=== PATIENT | male | born 1985 | race Caucasian/White ===

== ENCOUNTER 2018-05-27 17:22 | Emergency (ER) | payer BC ==
[~2018-05-27 17:22] MED LIST: CEP500 PO; HYDR-3078 PO; IBU800 PO; IBUP-1618 PO; LOR5 PO; NO RTN MEDS; OMEP-218 PO; ONDA4TAB PO; OXYC-856 PO; PER PO
[2018-05-27] MEDS ORDERED: NS(*) 0.9% 1000 ML BAG 1,000 ML IV ONE (18:01)
--- NOTE | 2018-05-27 18:02 | ER Report ---
History and Physical Time Seen By MD: 18:01 HPI/YAMILET CHIEF COMPLAINT: Alcohol dependency, suicidal ideation, depression HISTORY OF PRESENT ILLNESS: 32-year-old male with a history of 10 years of drinking presents with his mother concerned over suicidal ideation with depression. He is drinking approximately a 5th per day of hard alcohol. 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 He expresses suicidal ideation. He has multiple plans. He's considering hanging himself with a rope. Patient seems very actively suicidal at this time. REVIEW OF SYSTEMS: Respiratory: No cough, no dyspnea. Cardiovascular: No chest pain, no palpitations. Gastrointestinal: No vomiting, no abdominal pain. Musculoskeletal: No back pain. Allergies: Coded Allergies: No Known Allergies (Unverified Allergy, Mild, 02/17/12) Home Meds Active Scripts Oxycodone Hcl/Acetaminophen (ENDOCET 7.5-325 MG TABLET) 1 Each Tablet, 1-2 EACH PO Q6-8H, #40 Prov:MADELEINE DALTON DO 03/31/13 Reported Medications Oxycodone Hcl/Acetaminophen (ENDOCET 7.5-325 MG TABLET) 1 Each Tablet, 1 EACH PO 03/31/13 [No Rtn Meds ] No Conflict Check 03/31/13 Reviewed Nurses Notes: Yes Old Medical Records Reviewed: Yes Hx Smoking: Yes Smoking Status: Current: Some Days Smoker Hx Substance Use Disorder: Yes Hx Alcohol Use: Yes Constitutional Vital Sign - Last 24 Hours 05/27/18 05/27/18 05/27/18 05/27/18 17:53 17:55 18:00 18:10 Temp 98.0 Pulse 96 ??? 93 Resp 18 B/P (MAP) 138/102 138/102 (114) Pulse Ox 95 96 05/27/18 05/27/18 05/27/18 05/27/18 18:15 18:25 18:30 18:40 Pulse 89 92 B/P (MAP) 133/101 (112) 139/95 (110) Pulse Ox 96 98 05/27/18 05/27/18 05/27/18 05/27/18 18:45 18:55 19:10 19:15 Pulse 91 87 B/P (MAP) 137/102 (114) 112/74 (87) Pulse Ox 96 96 05/27/18 05/27/18 05/27/18 05/27/18 19:25 19:30 19:40 19:45 Pulse 91 88 B/P (MAP) 130/93 (105) 140/94 (109) Pulse Ox 95 95 05/27/18 05/27/18 05/27/18 19:50 20:00 20:05 Pulse 83 ??? B/P (MAP) 116/71 (86) Pulse Ox 94 Intake and Output 05/27/18 05/27/18 05/28/18 15:00 23:00 07:00 Intake Total 1000 ml Balance 1000 ml Physical Exam General Appearance: The patient is alert, has no immediate need for airway protection and no current signs of toxicity. Mildly agitated, restless, tearful, withdrawn., expresses suicidal ideation HEENT: Pupils equal and round no injection. TMs normal, oropharynx without redness or exudate, mucous. Membranes are moist Respiratory: Chest is non tender, lungs are clear to auscultation. Cardiac: regular rate and rhythm Gastrointestinal: Abdomen is soft and non tender, no masses, bowel sounds normal. Musculoskeletal: Neck: Neck is supple and non tender. Extremities have full range of motion and are non tender. Skin: No rashes or lesions. DIFFERENTIAL DIAGNOSIS: After history and physical exam differential diagnosis was considered for depression including functional and major depression, situational depression, medication side effect, drugs and alcohol abuse. Medical Decision Making Data Points Result Diagram: 05/27/18 18005/27/18 180 Laboratory Hematology Test 05/27/18 18:06 05/27/18 18:59 Red Blood Count 5.01 M/uL (4.00-5.60) Mean Corpuscular Volume 100.1 fL (80.0-96.0) Mean Corpuscular Hemoglobin 34.4 pg (26.0-33.0) Mean Corpuscular Hemoglobin Concent 34.4 g/dL (32.0-36.0) Red Cell Distribution Width 13.0 % (11.5-14.5) Mean Platelet Volume 8.0 fL (7.2-11.1) Neutrophils (%) (Auto) 55.6 % (39.4-72.5) Lymphocytes (%) (Auto) 32.6 % (17.6-49.6) Monocytes (%) (Auto) 9.6 % (4.1-12.4) Eosinophils (%) (Auto) 1.5 % (0.4-6.7) Basophils (%) (Auto) 0.7 % (0.3-1.4) Nucleated RBC Relative Count (auto) 0.0 /100WBC Neutrophils # (Auto) 2.9 K/uL (2.0-7.4) Lymphocytes # (Auto) 1.7 K/uL (1.3-3.6) Monocytes # (Auto) 0.5 K/uL (0.3-1.0) Eosinophils # (Auto) 0.1 K/uL (0.0-0.5) Basophils # (Auto) 0.0 K/uL (0.0-0.1) Nucleated RBC Absolute Count (auto) 0.00 K/uL Sodium Level 145 mmol/L (137-145) Potassium Level 3.1 mmol/L (3.5-5.0) Chloride Level 107 mmol/L (98-107) Carbon Dioxide Level 25 mmol/L (22-30) Blood Urea Nitrogen 9 mg/dl (9-21) Creatinine 0.80 mg/dl (0.66-1.25) Glomerular Filtration Rate Calc > 60.0 Random Glucose 133 mg/dl (75-110) Calcium Level 9.3 mg/dl (8.4-10.2) Magnesium Level 2.3 mg/dl (1.7-2.2) Total Bilirubin 0.5 mg/dl (0.2-1.3) Aspartate Amino Transf (AST/SGOT) 40 U/L (0-35) Alanine Aminotransferase (ALT/SGPT) 32 U/L (0-56) Alkaline Phosphatase 60 U/L (0-126) Total Protein 7.8 g/dl (6.3-8.2) Albumin 4.7 g/dl (3.5-5.0) Salicylates Level < 10 mg/L Salicylate Last Dose Date Unk Acetaminophen Level < 10 ug/ml Serum Alcohol 234 mg/dl Urine Color Yellow Urine Clarity Clear Urine pH 7.0 pH (4.8-9.5) Urine Specific [place] 1.005 Urine Protein Negative mg/dL (NEGATIVE) Urine Glucose (UA) Negative mg/dL (NEGATIVE) Urine Ketones Negative mg/dL (NEGATIVE) Urine Blood Negative (NEGATIVE) Urine Nitrite Negative (NEGATIVE) Urine Bilirubin Negative (NEGATIVE) Urine Urobilinogen Negative mg/dL (0.2-1.9) Urine Leukocyte Esterase Negative (NEGATIVE) Urine RBC None /HPF (0-2/HPF) Urine WBC <1 /HPF (0-5/HPF) Urine Squamous Epithelial Cells None /LPF (</=FEW) Urine Bacteria Negative /HPF (NONE-FEW) Urine Mucus None /HPF (NONE-FEW) Urine Opiates Screen Negative Urine Barbiturates Screen Negative Ur Tricyclic Antidepressants Screen Negative Urine Phencyclidine Screen Negative Urine Amphetamines Screen Negative Urine Benzodiazepines Screen Negative Urine Cocaine Screen Negative Urine Cannabinoids Screen Negative Chemistry Test 05/27/18 18:06 05/27/18 18:59 White Blood Count 5.3 k/uL (4.5-11.0) Red Blood Count 5.01 M/uL (4.00-5.60) Hemoglobin 17.2 g/dL (14.0-18.0) Hematocrit 50.2 % (42.0-52.0) Mean Corpuscular Volume 100.1 fL (80.0-96.0) Mean Corpuscular Hemoglobin 34.4 pg (26.0-33.0) Mean Corpuscular Hemoglobin Concent 34.4 g/dL (32.0-36.0) Red Cell Distribution Width 13.0 % (11.5-14.5) Platelet Count 259 K/uL (150-450) Mean Platelet Volume 8.0 fL (7.2-11.1) Neutrophils (%) (Auto) 55.6 % (39.4-72.5) Lymphocytes (%) (Auto) 32.6 % (17.6-49.6) Monocytes (%) (Auto) 9.6 % (4.1-12.4) Eosinophils (%) (Auto) 1.5 % (0.4-6.7) Basophils (%) (Auto) 0.7 % (0.3-1.4) Nucleated RBC Relative Count (auto) 0.0 /100WBC Neutrophils # (Auto) 2.9 K/uL (2.0-7.4) Lymphocytes # (Auto) 1.7 K/uL (1.3-3.6) Monocytes # (Auto) 0.5 K/uL (0.3-1.0) Eosinophils # (Auto) 0.1 K/uL (0.0-0.5) Basophils # (Auto) 0.0 K/uL (0.0-0.1) Nucleated RBC Absolute Count (auto) 0.00 K/uL Glomerular Filtration Rate Calc > 60.0 Calcium Level 9.3 mg/dl (8.4-10.2) Magnesium Level 2.3 mg/dl (1.7-2.2) Total Bilirubin 0.5 mg/dl (0.2-1.3) Aspartate Amino Transf (AST/SGOT) 40 U/L (0-35) Alanine Aminotransferase (ALT/SGPT) 32 U/L (0-56) Alkaline Phosphatase 60 U/L (0-126) Total Protein 7.8 g/dl (6.3-8.2) Albumin 4.7 g/dl (3.5-5.0) Salicylates Level < 10 mg/L Salicylate Last Dose Date Unk Acetaminophen Level < 10 ug/ml Serum Alcohol 234 mg/dl Urine Color Yellow Urine Clarity Clear Urine pH 7.0 pH (4.8-9.5) Urine Specific [place] 1.005 Urine Protein Negative mg/dL (NEGATIVE) Urine Glucose (UA) Negative mg/dL (NEGATIVE) Urine Ketones Negative mg/dL (NEGATIVE) Urine Blood Negative (NEGATIVE) Urine Nitrite Negative (NEGATIVE) Urine Bilirubin Negative (NEGATIVE) Urine Urobilinogen Negative mg/dL (0.2-1.9) Urine Leukocyte Esterase Negative (NEGATIVE) Urine RBC None /HPF (0-2/HPF) Urine WBC <1 /HPF (0-5/HPF) Urine Squamous Epithelial Cells None /LPF (</=FEW) Urine Bacteria Negative /HPF (NONE-FEW) Urine Mucus None /HPF (NONE-FEW) Urine Opiates Screen Negative Urine Barbiturates Screen Negative Ur Tricyclic Antidepressants Screen Negative Urine Phencyclidine Screen Negative Urine Amphetamines Screen Negative Urine Benzodiazepines Screen Negative Urine Cocaine Screen Negative Urine Cannabinoids Screen Negative Toxicology Test 05/27/18 18:06 05/27/18 18:59 Salicylates Level < 10 mg/L Salicylate Last Dose Date Unk Acetaminophen Level < 10 ug/ml Serum Alcohol 234 mg/dl Urine Opiates Screen Negative Urine Barbiturates Screen Negative Ur Tricyclic Antidepressants Screen Negative Urine Phencyclidine Screen Negative Urine Amphetamines Screen Negative Urine Benzodiazepines Screen Negative Urine Cocaine Screen Negative Urine Cannabinoids Screen Negative Urinalysis Test 05/27/18 18:59 Urine Color Yellow Urine Clarity Clear Urine pH 7.0 pH (4.8-9.5) Urine Specific [place] 1.005 Urine Protein Negative mg/dL (NEGATIVE) Urine Glucose (UA) Negative mg/dL (NEGATIVE) Urine Ketones Negative mg/dL (NEGATIVE) Urine Blood Negative (NEGATIVE) Urine Nitrite Negative (NEGATIVE) Urine Bilirubin Negative (NEGATIVE) Urine Urobilinogen Negative mg/dL (0.2-1.9) Urine Leukocyte Esterase Negative (NEGATIVE) Urine RBC None /HPF (0-2/HPF) Urine WBC <1 /HPF (0-5/HPF) Urine Squamous Epithelial Cells None /LPF (</=FEW) Urine Bacteria Negative /HPF (NONE-FEW) Urine Mucus None /HPF (NONE-FEW) ED Course/Re-evaluation Clinical Indication for ER IV: Hydration, IV Access ED Course Patient was admitted to an examination room. H&P was done. The differential diagnoses was considered. On clinical examination, patient appears alcohol intoxicated. He is cooperative and pleasant. He is somewhat agitated and restless. He expresses suicidal ideation. He has plans to hang himself. After prolonged medical evaluation. Patient was detained for admission to behavioral health. I think is a significant suicidal risk. Patient's blood alcohol returned at 231. 05/27/2018 7:36:38 pm shamika with Gina Camacho nurse practitioner a behavioral health service who accepts the patient for admission. Decision to Disposition Date: May 27, 2018 Decision to Disposition Time: 19:36 Depart Departure Latest Vital Signs Vital Signs Date Time Temp Pulse Resp B/P (MAP) Pulse Ox O2 Delivery O2 Flow Rate FiO2 05/27/18 20:05 ??? 05/27/18 20:00 116/71 (86) 05/27/18 19:50 94 05/27/18 17:53 98.0 18 Impression: Primary Impression: Alcohol dependence Additional Impression: Depression with suicidal ideation Condition: Improved Disposition: XFER TO [facility] Referrals: SAUD NARVAEZ MD (PCP) Problem Qualifiers Primary Impression: Alcohol dependence Substance use status: uncomplicated Qualified Codes: F10.20 - Alcohol dependence, uncomplicated VANDANAMAGDALENO May 27, 2018 18:02
[2018-05-27] MEDS ORDERED: THIAMINE HCL(*) 200 MG/2 ML IN 100 MG, FOLIC ACID(*) 50 MG/10 ML INJ 1 MG, MULTIVITAMIN... IV ONE (18:07)
[2018-05-27] MEDS ORDERED: OLANZapine ZYDIS ODT 5MG TABDP PO ONE (18:15)
[2018-05-27 18:32] LABS: PLATELET COUNT, AUTOMATED 259 K/uL (150-450)
[2018-05-27] MEDS ORDERED: diphenhydrAMINE 50 MG/ML VIAL IVP ONE (18:35)
[2018-05-27] MEDS ORDERED: DIAZEPAM 10 MG TAB PO ONE (19:00)
[2018-05-27 20:00] VITALS: BP 116/71
== END 2018-05-27 20:15 ==
LOC: ER 18:09
DX: F32.9 Major depressive disorder, single episode, unspecified (principal); R45.851 Suicidal ideations; F10.229 Alcohol dependence with intoxication, unspecified; Y90.7 Blood alcohol level of 200-239 mg/100 ml
CPT/HCPCS: 80305; 80320; 80329; 81001; 83735; 84443; 85025; 96365; 96375; 99284; J1200; J3411; J3475; J7030; 82040; 82247; 82310; 82374; 82435; 82565; 82947; 84075; 84132; 84155; 84295; 84450; 84460; 84520

== ENCOUNTER 2018-05-27 19:59 | Inpatient (IN) | payer BC ==
[~2018-05-27] VITALS: Ht 185.4 cm; Wt 70.3 kg
[2018-05-27 21:07] VITALS: BP 115/82
[2018-05-27] MEDS ORDERED: MAG HYD/AL HYD/SIMETH 30ML UDC PO PRN (21:30)
[2018-05-27] MEDS ORDERED: DIAZEPAM 10 MG TAB PO PRN ×2 (21:30→21:35)
[2018-05-28 06:08] LABS: PLATELET COUNT, AUTOMATED 211 K/uL (150-450)
[2018-05-28 06:23] VITALS: BP 117/82
[2018-05-28] MEDS: THIAMINE HCL 100 MG TAB PO SCH (08:11)
[2018-05-28] MEDS: FOLIC ACID 1 MG TAB PO SCH (08:11)
[2018-05-28] MEDS: MULTIVITAMINS PO SCH (08:11)
[2018-05-28] MEDS ORDERED: NICOTINE CARTRIDGE 1 EA PO PRN (08:15)
[2018-05-28 08:48] VITALS: BP 134/86
[2018-05-28] MEDS: NICOTINE INH SYSTEM 10 MG/INH INH PRN ×3 (09:05→19:41)
[2018-05-28 11:48] VITALS: BP 120/84
[2018-05-28 17:16] VITALS: BP 120/80
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
[2018-05-28 21:40] VITALS: BP 118/97
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
[2018-05-29 06:05] VITALS: BP 112/82
[2018-05-29] MEDS: MULTIVITAMINS PO SCH (08:17)
[2018-05-29] MEDS: FOLIC ACID 1 MG TAB PO SCH (08:17)
[2018-05-29] MEDS: THIAMINE HCL 100 MG TAB PO SCH (08:17)
[2018-05-29 10:15] VITALS: BP 122/82
--- NOTE | 2018-05-29 10:50 | BHS Progress Note ---
BHS - Subjective Progress Notes Subjective Pt seen in conference room with team. Pt reports better mood today. No SI since the evening of admission. We mostly discussed strategies for sobriety. He is familiar with AA because his brother (currently sober) attends AA. Will give him information on AA today, and see if he would like to have some AA memb ers come meet with him here. Told pt that we recommend IOP, and discussed what that looks like-- he works 4 nights per week beginning at 8 pm, so he thinks that would fit in to his schedule. He is more hopeful and future-oriented today. Had a good talk with his girlfriend last night. Discussed medications for him-- he has long hx of depression, ALONG WITH long hx of drinking. So unclear if there is underlying depressive disorder or if this is more substance- induced. But in any case we did recommend wellbutrin and discussed how it will help with depressive sx's as well as possibly with cravings. Pt is still on Title 25 hold, but given that he is cooperative, motivated, wants help... we did offer him to sign in voluntarily and he did do so. Will schedule treatment team for tomorrow with his mother and his girlfriend. Working towards tentative discharge for if pt continues to improve and stays free of SI. Suicidal Ideation: None Homicidal Ideation: None BHS - Objective Physical Exam Vital Signs Vital Signs 05/29/18 06:05 Temp 98.4 Pulse 78 Resp 15 B/P (MAP) 112/82 (92) Pulse Ox 96 O2 Delivery Room Air Muscle Strength and Tone: WNL Gait and Station: Steady BHS Medications Reviewed: Side Effects, Benefits of Medication, Risks Allergies Reviewed: Yes Mental Status Exam General Appearance: Casual, Well Groomed, Good Eye Contact, Cooperative, Polite, Good Interaction Speech: Clear, Spontaneous, Normal Rate, Normal Rhythm Mood: Dysthmic/Depressed Affect: Calm, Sad, Neutral Thought Process: Organized, Logical, Goal Directed Thought Content: Suicidal Ideation (resolving); No Homicidal Ideation, No Delusions, No Auditory Halllucinations, No Visual Hallucinations, No Thought Broadcasting, No Ideas of Reference, No Obsessions, No Compulsions, No Other Sensorium: Clear Cognition: Alert & Oriented-Person, Alert & Oriented-Place, Alert & Oriented- Time, Foowt-Azevlddg-Oifggkaux Memory: Immediate, Recent, Remote Intelligence: Average Insight Judgment: Fair Result Diagram: 05/28/18 0559 05/28/1859 [facility] Assessment and Plan [id number] Encounter Date: May 29, 2018 [id number] Encounter Time: 10:00 [facility] Plan: Admit to Unit, Necessary Precautions, Individual/Group Therapy, Admin/Titrate Meds, Educate Patient Tobacco Medications: Started Multpiple Antipsychotics Used: No Problems: (1) Alcohol use disorder, severe, dependence (2) Substance induced mood disorder YAKOV MURILLO MD May 29, 2018 10:50
[2018-05-29] MEDS: NICOTINE INH SYSTEM 10 MG/INH INH PRN ×4 (12:12→20:42)
[2018-05-29] MEDS ORDERED: buPROPion XL 150 MG TABCR PO SCH (18:00)
[2018-05-29 21:30] VITALS: BP 128/79
[2018-05-30 05:58] VITALS: BP 109/75
[2018-05-30] MEDS: MULTIVITAMINS PO SCH (08:26)
[2018-05-30] MEDS: NICOTINE INH SYSTEM 10 MG/INH INH PRN ×4 (08:26→15:57)
[2018-05-30] MEDS: FOLIC ACID 1 MG TAB PO SCH (08:26)
[2018-05-30] MEDS: THIAMINE HCL 100 MG TAB PO SCH (08:26)
[2018-05-30] MEDS ORDERED: FOLI-68 PO ×2 (10:05→10:06)
[2018-05-30] MEDS ORDERED: MULT-1379 PO (10:05)
[2018-05-30] MEDS ORDERED: BUPR-126 PO (10:07)
[2018-05-30] MEDS ORDERED: THIA100T6 PO (10:07)
[2018-05-30] MEDS ORDERED: NICOTROL CARTRIDGE PO (10:08)
[2018-05-30] MEDS ORDERED: NIC10R INH (10:08)
[2018-05-30 13:34] VITALS: BP 123/92
--- NOTE | 2018-05-31 04:41 | DISCHARGE SUMMARY ---
DATE OF ADMISSION: May 27, 2018 DATE OF DISCHARGE: May 30, 2018 ATTENDING PHYSICIAN Josefa Clifton DO TYPE OF ADMISSION Emergency intermediate. TYPE OF DISCHARGE Routine. FINAL DIAGNOSES 1. Alcohol use disorder. 2. Substance-induced mood disorder. PRESENTING PROBLEMS AND REASON FOR ADMISSION Mr. Gonzales presented to the emergency room on admission with a blood alcohol level of 234. This was the first-ever psychiatric hospitalization for this 32-year-old man. He came in voluntarily stating he was suicidal and wanted to stop drinking. He had been feeling suicidal on and off for the previous 10 years, but lately, he was feeling "very self-destructive." He also added that at times he drinks enough so that he hoped he would not wake up the next day, and that two days prior to admission, he did go and buy a large bottle of whiskey with the intention of trying to drink himself to . He also had thoughts of hanging himself. He admitted to one past suicide attempt by jumping in front of a car 10 years ago. Mr. Gonzales has been drinking alcohol steadily since he turned 22, and his longest period of sobriety was four days. He had been drinking between one to three pints of alcohol per day. HOSPITAL COURSE AND TREATMENT PROVIDED Mr. Gonzales was placed on the CIWA protocol following admission, but his detox was quick and uncomplicated. We also started him on Wellbutrin SR 150 mg, hoping to address his depressed mood. We learned that there is a family history of depression, and his mother, in particular, suffers with depression. Vital signs were unremarkable throughout this admission, and no signs of physical pathology were discovered. We engaged Mr. Gonzales in individual and group therapy to address his addiction and strategies to remain sober following release. We also talked about harm reduction strategies and increasing stress tolerance, in addition to developing an outpatient safety plan. RESULTS OF TESTING CBC on admission was significant for an elevated MCV of 100, consistent with his history of heavy alcohol consumption. Hemoglobin was 15.5 and hematocrit 44.9. Urine chemistries were also notable for an elevated AST of 40, but ALT was normal at 29. PATIENT'S CONDITION AT DISCHARGE On the morning of discharge, Mr. Gonzales's vital signs are as follows: Temperature 99, pulse 86, respirations 18, blood pressure 123/92. I met with the patient in treatment team on the morning of discharge at about 9 a.m. He was accompanied by his mother and also his girlfriend, and we included them in this treatment team meeting. At this time, he feels in stable and improved condition and ready to be released to outpatient treatment. He says he is not having any cravings for alcohol today, and not having any thoughts of suicide or any problems with depressed mood today. He is denying any side effects from his medication, and I encouraged him to advance the dose of Wellbutrin to the usual dose of 150 mg twice daily. I inquired about potential complications and warned him about the possibility of seizures with Wellbutrin. He has had some mild concussions in the past. He has never had problems with bulimia. Mr. Gonzales is clear on his understanding of the importance of sobriety as well as the details of his discharge plan. He appears motivated to continue to remain sober and to follow up with outpatient treatment. PATIENT AND FAMILY INSTRUCTIONS We made an appointment for Chad to see Arlen Anthony at [facility] for an intake evaluation to begin intensive outpatient treatment. We also made him an appointment with Galilea March on Monday, June 04, to continue his medications. We recommended he attend AA and, of course, not drink any alcohol. He was given instructions to call the crisis line or to return to the emergency room if necessary. [facility]
== END 2018-05-30 16:53 | disposition home or self-care (01) | DRG 897 ==
LOC: BHS 19:59
PROVIDERS: ADMIT Nurse Practitioner Psychiatric/Mental Health; ATTEND Nurse Practitioner Psychiatric/Mental Health
DX: F10.24 Alcohol dependence with alcohol-induced mood disorder (principal); R45.851 Suicidal ideations; F10.230 Alcohol dependence with withdrawal, uncomplicated; F32.9 Major depressive disorder, single episode, unspecified; F17.210 Nicotine dependence, cigarettes, uncomplicated; Y90.7 Blood alcohol level of 200-239 mg/100 ml; Z91.5 Personal history of self-harm; Z81.8 Family history of other mental and behavioral disorders; Z81.1 Family history of alcohol abuse and dependence; Z63.0 Problems in relationship with spouse or partner
CPT/HCPCS: 36415; 82040; 82247; 82310; 82374; 82435; 82565; 82947; 84075; 84132; 84155; 84295; 84450; 84460; 84520; 85025